=== PATIENT | male | born 1935 | race Caucasian/White ===

== ENCOUNTER 2017-03-25 12:30 | Observation (INO) | payer MEDICARE, BC ==
[2017-03-25] MEDS ORDERED: Ondansetron 4 MG/2 ML SDV IVPUSH ONE (13:00)
--- NOTE | 2017-03-25 13:00 | EDM.PDOC ---
ED HPI GENERAL MEDICAL PROBLEM - General Stated Complaint: SICK TO STOMACH, HEART RATE LOW Time Seen by Provider: 03/25/17 12:30 Source of Information: Reports: Patient, EMS, EMS Notes Reviewed, Family History Limitations: Reports: No Limitations - History of Present Illness INITIAL COMMENTS - FREE TEXT/NARRATIVE: 82 years old w katherin came to the ed after he passed out while eating. As the ambulance arrived, pt was diaphoretic, SBP was in the 80s. pulse 50th. No Cp.Pt was given NS PROFESSIONAL ARCHITECT. As the patient arrived here in the ed, BP wea 115/87 pulse was 49. Pt is on Coreg. No old ecg available. Pt was OX3 and in no discomfort. Onset: Today, Sudden Onset Date: 03/25/17 Onset Time: 12:00 Duration: Minutes: Location: Reports: Generalized Improves with: Reports: None Worsens with: Reports: None - Related Data Allergies Allergy/AdvReac Type Severity Reaction Status Date / Time Penicillins Allergy Anaphylactic Verified 03/25/17 14:53 Shock red dye Allergy Anaphylactic Verified 03/25/17 14:53 Shock Home Meds: Home Meds Aspirin 81 mg PO DAILY 03/25/17 [History] Calcium Carbonate/Vitamin D3 [Caltrate 600 Plus D3 Tablet] 1 tab DAILY 03/25/17 [History] Cholecalciferol (Vitamin D3) [Vitamin D3] 1,000 unit PO 03/25/17 [History] Clopidogrel [Plavix] 75 mg PO DAILY 03/25/17 [History] Cyanocobalamin (Vitamin B-12) [Vitamin B-12] 1,000 mcg PO 03/25/17 [History] Dutasteride [Avodart] 0.5 mg PO DAILY 03/25/17 [History] Fish Oil/[place]-3 Fatty Acids [Fish Oil] 1 each PO TID 03/25/17 [History] Gluc/Derick-Msm#2/C/D3/Shakeel/Born [Dqebumxyiu-Alhoytappvs-MFI] 1 each PO TID [History] Losartan [Cozaar] 25 mg PO DAILY 03/25/17 [History] Multivitamin [One-A-Day Essential] 1 each PO 03/25/17 [History] Ubidecarenone [Coenzyme Q10] 100 mg PO 03/25/17 [History] atorvaSTATin [Lipitor] 20 mg PO BEDTIME 03/25/17 [History] ED ROS GENERAL - Review of Systems Review Of Systems: See Below Constitutional: Reports: No Symptoms HEENT: Reports: No Symptoms Respiratory: Reports: No Symptoms Cardiovascular: Reports: No Symptoms Endocrine: Reports: No Symptoms GI/Abdominal: Reports: No Symptoms : Reports: No Symptoms Musculoskeletal: Reports: No Symptoms Skin: Reports: No Symptoms Neurological: Reports: No Symptoms Psychiatric: Reports: No Symptoms Hematologic/Lymphatic: Reports: No Symptoms Immunologic: Reports: No Symptoms ED EXAM, GI/ABD - Physical Exam Exam: See Below Exam Limited By: No Limitations General Appearance: Alert, WD/WN, No Apparent Distress Eyes: Bilateral: Normal Appearance Ears: Normal External Exam Nose: Normal Inspection, Normal Mucosa Throat/Mouth: Normal Inspection, Normal Lips, Normal Teeth Head: Atraumatic, Normocephalic Neck: Normal Inspection, Supple Respiratory/Chest: No Respiratory Distress, Lungs Clear, Normal Breath Sounds Cardiovascular: Regular Rate, Rhythm, No Edema, No Gallop, No JVD, No Murmur, Bradycardia GI/Abdominal: Normal Bowel Sounds (Male) Exam: Deferred Rectal (Males) Exam: Deferred Back Exam: Normal Inspection, Full Range of Motion Extremities: Normal Inspection, Normal Range of Motion Neurological: Alert, Oriented, CN II-XII Intact, Normal Cognition Psychiatric: Normal Affect, Normal Mood Skin Exam: Warm, Dry, Intact, Normal Color Lymphatic: No Adenopathy EKG INTERPRETATION EKG Date: 03/25/17 Time: 12:35 Rhythm: NSR Rate (beats/min): 49 [place]: normal P-wave: present QRS: normal ST-T: normal QT: normal Comparison: NA - no prior EKG Course - Vital Signs Text/Narrative:: 82 years old w katherin came to the ed after he passed out while eating. As the ambulance arrived, pt was diaphoretic, SBP was in the 80s. pulse 50th. No Cp.Pt was given NS PROFESSIONAL ARCHITECT. As the patient arrived here in the ed, BP wea 115/87 pulse was 49. Pt is on Coreg. No old ecg available. Pt was OX3 and in no discomfort. PE: NL ECG: sinus bradycardia, old ecjg 08/2016 No change Labs: Troponin 0.01 Imaging: CXR NAD Impression: Postprandial syncope, Sinus bradycardia (on Coreg) Tx: NS Consultation: Dr. Leon, Cardiology, [place]: Admit pt for observation, hold off on all BP meds. rexam: Improved Plan: Admit to m/s tele Last Recorded V/S: Last Vital Signs Temp 36.3 C 03/25/17 12:30 Pulse 50 L 03/25/17 12:30 Resp 16 03/25/17 12:30 BP 129/51 L 03/25/17 12:30 Pulse Ox 97 03/25/17 12:30 - Orders/Labs/Meds Orders: Active Orders 24 hr Category Date Time Status Patient Status [ADT] Routine ADT 03/25/17 14:37 Ordered Cardiac Monitoring [RC] CONTINUOUS Care 03/25/17 14:39 Ordered Oxygen Therapy [RC] PRN Care 03/25/17 14:37 Ordered Pulse Oximetry [RC] PRN Care 03/25/17 14:40 Ordered Up With Assistance [RC] ASDIRECTED Care 03/25/17 14:37 Ordered VTE/DVT Education [RC] Per Unit Routine Care 03/25/17 14:37 Ordered Vital Signs [RC] Q4H Care 03/25/17 14:37 Ordered Chest 1V Frontal [CR] Stat Exams 03/25/17 12:56 Taken Ondansetron [Zofran ODT] Med 03/25/17 14:37 Ordered 4 mg PO Q4H PRN Sodium Chloride 0.9% [Normal Saline] 1,000 ml Med 03/25/17 13:00 Active IV ASDIRECTED Resuscitation Status Routine Resus Stat 03/25/17 14:37 Ordered EKG 12 Lead [EK] Routine Ther 03/25/17 12:57 Ordered Medication Orders Sodium Chloride (Normal Saline) 1,000 mls @ 125 mls/hr IV ASDIRECTED L[facility] Last Admin: 03/25/17 14:20 Dose: 125 mls/hr Ondansetron HCl (Zofran Odt) 4 mg PO Q4H PRN PRN Reason: nausea, able to take PO Labs: Laboratory Tests 03/25/17 03/25/17 03/25/17 Range/Units 12:40 12:40 12:40 WBC 7.5 (4.5-12.0) X10-3/uL RBC 4.72 (4.30-5.75) x10(6)uL Hgb 14.5 (11.5-15.5) g/dL Hct 43.2 (30.0-51.3) % MCV 91.6 (80-96) fL MCH 30.8 (27.7-33.6) pg MCHC 33.6 (32.2-35.4) g/dL RDW 13.5 (11.5-15.5) % Plt Count 214 (125-369) X10(3)uL MPV 7.9 (7.4-10.4) fL Neut % (Auto) 72.1 (46-82) % Lymph % (Auto) 15.0 (13-37) % [place] % (Auto) 6.9 (4-12) % Eos % (Auto) 5 (1.0-5.0) % Baso % (Auto) 1 (0-2) % Neut # (Auto) 5.5 (1.6-8.3) # Lymph # (Auto) 1.1 (0.6-5.0) # Campbell # (Auto) 0.5 (0.0-1.3) # Eos # (Auto) 0.4 (0.0-0.8) # Baso # (Auto) 0.0 (0.0-0.2) # PT 11.2 H (8.7-11.1) INR 1.11 (0.89-1.13) Sodium 138 (135-145) mmol/L Potassium 4.6 (3.5-5.3) mmol/L Chloride 108 (100-110) mmol/L Carbon Dioxide 25 (23-29) mmol/L BUN 27 H (8-23) mg/dL Creatinine 1.3 (0.6-1.3) mg/dL Est Cr Clr Drug Dosing TNP Estimated GFR (MDRD) 53 L (>60) BUN/Creatinine Ratio 20.8 H (9-20) Glucose 150 H (80-116) mg/dL Lactic Acid (0.5-2.2) mmol/L Calcium 9.8 (8.6-10.2) mg/dL Troponin I (0.02-0.06) NG/ML B-Natriuretic Peptide (0-100) pg/mL 03/25/17 03/25/17 03/25/17 Range/Units 12:40 12:40 12:40 WBC (4.5-12.0) X10-3/uL RBC (4.30-5.75) x10(6)uL Hgb (11.5-15.5) g/dL Hct (30.0-51.3) % MCV (80-96) fL MCH (27.7-33.6) pg MCHC (32.2-35.4) g/dL RDW (11.5-15.5) % Plt Count (125-369) X10(3)uL MPV (7.4-10.4) fL Neut % (Auto) (46-82) % Lymph % (Auto) (13-37) % Campbell % (Auto) (4-12) % Eos % (Auto) (1.0-5.0) % Baso % (Auto) (0-2) % Neut # (Auto) (1.6-8.3) # Lymph # (Auto) (0.6-5.0) # Campbell # (Auto) (0.0-1.3) # Eos # (Auto) (0.0-0.8) # Baso # (Auto) (0.0-0.2) # PT (8.7-11.1) INR (0.89-1.13) Sodium (135-145) mmol/L Potassium (3.5-5.3) mmol/L Chloride (100-110) mmol/L Carbon Dioxide (23-29) mmol/L BUN (8-23) mg/dL Creatinine (0.6-1.3) mg/dL Est Cr Clr Drug Dosing Estimated GFR (MDRD) (>60) BUN/Creatinine Ratio (9-20) Glucose (80-116) mg/dL Lactic Acid 1.1 (0.5-2.2) mmol/L Calcium (8.6-10.2) mg/dL Troponin I < 0.01 L (0.02-0.06) NG/ML B-Natriuretic Peptide 64 (0-100) pg/mL Meds: Medications Generic Name Dose Route Start Last Admin Trade Name Freq PRN Reason Stop Dose Admin Sodium Chloride 1,000 mls @ 125 mls/hr 03/25/17 13:00 03/25/17 14:20 Normal Saline IV 125 mls/hr ASDIRECTED LISA Administration Ondansetron HCl 4 mg 03/25/17 14:37 Zofran Odt PO Q4H PRN nausea, able to take PO Discontinued Medications Generic Name Dose Route Start Last Admin Trade Name Linda PRN Reason Stop Dose Admin Ondansetron HCl 4 mg 03/25/17 13:00 03/25/17 14:21 Zofran IVPUSH 03/25/17 13:01 Not Given ONETIME ONE Departure - Departure Time of Disposition: 14:36 Disposition: Refer to Observation Condition: fair Clinical Impression: Episode of syncope Qualifiers: Encounter type: initial encounter - Discharge Information Referrals: PCP,None [Primary Care Provider] - - My Orders Last 24 Hours: My Active Orders 03/25/17 12:56 Chest 1V Frontal [CR] Stat 03/25/17 12:57 EKG 12 Lead [EK] Routine 03/25/17 13:00 Sodium Chloride 0.9% [Normal Saline] 1,000 ml IV ASDIRECTED 03/25/17 14:37 Patient Status [ADT] Routine Oxygen Therapy [RC] PRN Up With Assistance [RC] ASDIRECTED VTE/DVT Education [RC] Per Unit Routine Vital Signs [RC] Q4H Ondansetron [Zofran ODT] 4 mg PO Q4H PRN Resuscitation Status Routine 03/25/17 14:39 Cardiac Monitoring [RC] CONTINUOUS 03/25/17 14:40 Pulse Oximetry [RC] PRN - Assessment/Plan Last 24 Hours: My Active Orders 03/25/17 12:56 Chest 1V Frontal [CR] Stat 03/25/17 12:57 EKG 12 Lead [EK] Routine 03/25/17 13:00 Sodium Chloride 0.9% [Normal Saline] 1,000 ml IV ASDIRECTED 03/25/17 14:37 Patient Status [ADT] Routine Oxygen Therapy [RC] PRN Up With Assistance [RC] ASDIRECTED VTE/DVT Education [RC] Per Unit Routine Vital Signs [RC] Q4H Ondansetron [Zofran ODT] 4 mg PO Q4H PRN Resuscitation Status Routine 03/25/17 14:39 Cardiac Monitoring [RC] CONTINUOUS 03/25/17 14:40 Pulse Oximetry [RC] PRN
[2017-03-25] MEDS: Sodium Chloride 0.9% 1,000 ML IV SCH ×2 (14:20→22:27)
[2017-03-25] MEDS ORDERED: Ondansetron 4 MG Tab.DIS PO PRN (14:37)
--- NOTE | 2017-03-25 17:26 | PCM.HP ---
H&P History of Present Illness - General Date of Service: 03/25/17 Admit Problem/Dx: Admission Diagnosis/Problem Admission Diagnosis/Problem Syncope Source of Information: Patient History Limitations: Reports: No Limitations - History of Present Illness Initial Comments - Free Text/Narative: This is an 82-year-old male patient that lives out at [facility]. He was here because his [id number] last night. He states he was at the parking lot at [facility] sitting in his pickup. He felt very nauseated and was diaphoretic. He stood outside his car and felt a little lightheaded and then was placed back in his car. Ambulance was called. There is a gentleman that helped him from [facility] and he did not remember this person. Ambulance evaluated him and his pulse was very low and his blood pressure was low. He was brought into the emergency room. He states his goals for soaked. 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 He denies chest pain, shortness of breath, jaw pain, arm pain. He states he's had pancreatitis in the past that gave similar symptoms. Right now he is asymptomatic as I speak to him. The ER doctor called his microphone boom operator and they recommended holding the carvedilol and observing him overnight. - Related Data Allergies/Adverse Reactions: Allergies Allergy/AdvReac Type Severity Reaction Status Date / Time Penicillins Allergy Anaphylactic Verified 03/25/17 14:53 Shock red dye Allergy Anaphylactic Verified 03/25/17 14:53 Shock Home Medications: Home Meds Aspirin 81 mg PO DAILY 03/25/17 [History] Calcium Carbonate/Vitamin D3 [Caltrate 600 Plus D3 Tablet] 1 tab PO DAILY [History] Cephalexin [Take Home: Cephalexin 500 MG, 4 Cap Pack] 500 mg PO BID 03/25/17 [ History] Cholecalciferol (Vitamin D3) [Vitamin D3] 1,000 unit PO DAILY 03/25/17 [History] Clopidogrel Bisulfate [Plavix] 75 mg PO DAILY 03/25/17 [History] Clopidogrel [Plavix] 75 mg PO DAILY 03/25/17 [History] Cyanocobalamin (Vitamin B-12) [Vitamin B-12] 2,000 mcg PO DAILY 03/25/17 [ History] Dutasteride [Avodart] 0.5 mg PO DAILY 03/25/17 [History] Fish Oil/[place]-3 Fatty Acids [Fish Oil] 1 each PO TID 03/25/17 [History] Gluc/Derick-Msm#2/C/D3/Shakeel/Born [Xmedvyxdjd-Hvdzfahirfc-KQA] 1 each PO TID [History] Losartan [Cozaar] 25 mg PO DAILY 03/25/17 [History] Multivitamin [One-A-Day Essential] 1 each PO DAILY 03/25/17 [History] Ranitidine [Zantac] 150 mg PO BID 03/25/17 [History] Ubidecarenone [Coenzyme Q10] 100 mg PO DAILY 03/25/17 [History] atorvaSTATin [Lipitor] 20 mg PO BEDTIME 03/25/17 [History] Past Medical History Cardiovascular History: Reports: CAD, [place] Gastrointestinal History: Reports: GERD, Pancreatitis, Other (See Below) Other Gastrointestinal History: "pancreas issues" Dermatologic History: Reports: Other (See Below) Other Dermatologic History: very reactive to bug bites. currently has a swollen left eye from a bug bite - Past Surgical History Cardiovascular Surgical History: Reports: Carotid Stents Other Cardiovascular Surgeries/Procedures: Coronary stent Social & Family History - Tobacco Use Smoking Status *Q: Never Smoker Second Hand Smoke Exposure: No - Caffeine Use Caffeine Use: Reports: Soda - Recreational Drug Use Recreational Drug Use: No H&P Review of Systems - Review of Systems: Review Of Systems: See Below General: Reports: Diaphoresis HEENT: Reports: No Symptoms Pulmonary: Reports: No Symptoms Cardiovascular: Reports: No Symptoms Gastrointestinal: Reports: Nausea. Denies: Abdominal Pain, Black Stool, Bloody Stool, Constipation, Diarrhea, Difficulty Swallowing, Hematemesis, Hematochezia , Melena, Vomiting Genitourinary: Reports: No Symptoms Musculoskeletal: Reports: No Symptoms Skin: Reports: No Symptoms Psychiatric: Reports: No Symptoms Neurological: Reports: No Symptoms Hematologic/Lymphatic: Reports: No Symptoms Immunologic: Reports: No Symptoms Exam - Exam Exam: See Below - Vital Signs Vital Signs: Last Vital Signs Temp 98 F 03/25/17 16:15 Pulse 87 03/25/17 16:15 Resp 16 03/25/17 16:15 BP 146/71 H 03/25/17 16:15 Pulse Ox 98 03/25/17 16:15 Weight: 159 lb 6.4 oz - Exam General: Alert, Oriented, Cooperative HEENT: Hearing Intact, Mucosa Moist & [place], Posterior Pharynx Clear, Pupils Equal, Pupils Reactive, TMs Clear, Other (Left eye is swollen. He was diagnosed with cellulitis of the eye earlier today and placed on cephalexin.). No: Rhinitis Neck: Supple, Trachea Midline. No: Carotid Bruit, JVD Lungs: Clear to Auscultation, Normal Respiratory Effort. No: Decreased Breath Sounds, Crackles, Rales, Rhonchi, Rub Cardiovascular: Regular Rate, Regular Rhythm, Normal S1, Normal S2. No: Bradycardia, Tachycardia, Systolic Murmur, Diastolic Murmur Abdomen: Normal Bowel Sounds, Soft. No: Organomegaly, Peritoneal Signs, Distention, Guarding, Rigidity Back Exam: Normal Inspection, Full Range of Motion, NT Extremities: Normal Inspection. No: Edema Skin: Warm, Dry, Intact Neurological: Normal Speech, Normal Tone Neuro Extensive - Mental Status: Alert, Oriented x3, Normal Mood/Affect, Normal Cognition Psychiatric: Alert, Normal Affect, Normal Mood - Patient Data Lab Results last 24 hrs: Laboratory Results - last 24 hr 03/25/17 Range/Units 15:45 Urine Color Yellow (YELLOW) Urine Appearance Clear (CLEAR) Urine pH 6.0 (5.0-6.5) Ur Specific [place] 1.015 (1.010-1.025) Urine Protein Negative (NEGATIVE) mg/dL Urine Glucose (UA) 250 H (NEGATIVE) mg/dL Urine Ketones Negative (NEGATIVE) mg/dL Urine Occult Blood Negative (NEGATIVE) Urine Nitrite Negative (NEGATIVE) Urine Bilirubin Negative (NEGATIVE) Urine Urobilinogen Normal (NEGATIVE) mg/dL Ur Leukocyte Esterase Negative (NEGATIVE) Result Diagrams: 03/25/17 12:40 03/25/17 12:40 Imaging Impressions last 24 hrs: 1 view the chest shows no acute changes. EKG INTERPRETATION EKG Interpretation Comments: Sinus bradycardia with a rate of 49. Right bundle branch block. Old inferior and anterior lateral [place] *Q Meaningful Use (ADM) - VTE *Q VTE Criteria *Q: - Stroke *Q Stroke Criteria *Q: - AMI *Q AMI Criteria *Q: - Problem List (1) Bradycardia SNOMED Code(s): 51092734 ICD Code: R00.1 - BRADYCARDIA, UNSPECIFIED Status: Acute Current Visit: Yes (2) Episode of syncope SNOMED Code(s): 114136388 ICD Code: R55 - SYNCOPE AND COLLAPSE Status: Acute Current Visit: Yes Qualifiers: Encounter type: initial encounter Problem List Initiated/Reviewed/Updated: Yes Orders Last 24hrs: Medication Orders Sodium Chloride (Normal Saline) 1,000 mls @ 125 mls/hr IV ASDIRECTED [facility] Last Admin: 03/25/17 14:20 Dose: 125 mls/hr Ondansetron HCl (Zofran Odt) 4 mg PO Q4H PRN PRN Reason: nausea, able to take PO Assessment/Plan Comment:: 1. Admit for observation with telemetry and some IV fluids. 2.. Continue all his home medicines except carvedilol. Continue Keflex 500 mg 3 times a day. 3. Hold carvedilol tonight. 4. Check amylase 5. Do EKG and troponin in a.m. 6. Cardiac diet. 7. Upper with assist.
[2017-03-25] MEDS ORDERED: FATTY ACIDS PO SCH (21:00)
[2017-03-25] MEDS ORDERED: Non-Formulary Medication 1 Each (Gluc/Chon-Msm#2/C/D3/Mang/Born [Glucosamin-Chondroitin-Ms PO SCH (21:00)
[2017-03-25] MEDS ORDERED: [UNRECOGNIZED DRUG - OTHER] PO SCH (21:00)
[2017-03-25] MEDS ORDERED: [UNRECOGNIZED DRUG - OTHER] PO SCH (21:00)
[2017-03-25] MEDS ORDERED: Non-Formulary Medication 1 Each (Atorvastatin [Lipitor] 20 MG) PO SCH (21:00)
[2017-03-25] MEDS ORDERED: FISH OIL PO SCH (21:00)
[2017-03-25] MEDS ORDERED: CEPHALEXIN PO SCH (21:00)
[2017-03-25] MEDS ORDERED: OMEGA PO SCH (21:00)
[2017-03-25] MEDS ORDERED: Non-Formulary Medication 1 Each (Ranitidine [Zantac] 150 MG) PO SCH (21:00)
[2017-03-26] MEDS: Sodium Chloride 0.9% 1,000 ML IV SCH (06:39)
--- NOTE | 2017-03-26 08:05 | PCM.PN ---
- General Info Date of Service: 03/26/17 Admission Dx/Problem (Free Text): Patient without complaints. He denies chest pain, palpitations, shortness of breath, abdominal pain, nausea, vomiting, diarrhea or constipation. - Patient Data Vitals - most recent: Last Vital Signs Temp 97.7 F 03/26/17 04:00 Pulse 62 03/26/17 04:00 Resp 16 03/26/17 04:00 BP 138/68 03/26/17 04:00 Pulse Ox 96 03/26/17 04:00 Weight - most recent: 159 lb 6.4 oz I&O - last 24 hours: Intake & Output 03/25/17 03/26/17 03/26/17 22:59 06:59 14:59 Intake Total 766 909 300 Balance 766 909 300 Lab Results last 24 hrs: Laboratory Results - last 24 hr 03/25/17 03/26/17 Range/Units 15:45 06:30 Troponin I 0.02 (0.02-0.06) NG/ML Urine Color Yellow (YELLOW) Urine Appearance Clear (CLEAR) Urine pH 6.0 (5.0-6.5) Ur Specific [place] 1.015 (1.010-1.025) Urine Protein Negative (NEGATIVE) mg/dL Urine Glucose (UA) 250 H (NEGATIVE) mg/dL Urine Ketones Negative (NEGATIVE) mg/dL Urine Occult Blood Negative (NEGATIVE) Urine Nitrite Negative (NEGATIVE) Urine Bilirubin Negative (NEGATIVE) Urine Urobilinogen Normal (NEGATIVE) mg/dL Ur Leukocyte Esterase Negative (NEGATIVE) Med Orders - Current: Current Medications Sodium Chloride (Normal Saline) 1,000 mls @ 125 mls/hr IV ASDIRECTED [facility] Last Admin: 03/26/17 06:39 Dose: 125 mls/hr Non-Formulary Medication (Aspirin [Aspirin]) 81 mg PO DAILY [facility] Non-Formulary Medication (Calcium Carbonate/Vitamin D3 [Caltrate 600 Plus D3 Tablet]) 1 tab PO DAILY [facility] Non-Formulary Medication (Cephalexin [Take Home: Cephalexin 500 Mg, 4 Cap Pack] ) 500 mg PO BID [facility] Non-Formulary Medication (Cholecalciferol (Vitamin D3) [Vitamin D3]) 1,000 unit PO DAILY [facility] Non-Formulary Medication (Clopidogrel [Plavix]) 75 mg PO DAILY [facility] Non-Formulary Medication (Cyanocobalamin (Vitamin B-12) [Vitamin B-12]) 2,000 mcg PO DAILY [facility] Non-Formulary Medication (Fish Oil/[place]-3 Fatty Acids [Fish Oil 1,000 Mg]) 1 each PO TID [facility] Non-Formulary Medication (Gluc/Derick-Msm#2/C/D3/Shakeel/Born [Glucosamin-Chondroitin -Msm]) 1 each PO TID [facility] Non-Formulary Medication (Losartan [Cozaar]) 25 mg PO DAILY [facility] Non-Formulary Medication (Multivitamin [One-A-Day Essential]) 1 each PO DAILY [facility] Non-Formulary Medication (Ranitidine [Zantac]) 150 mg PO BID [facility] Non-Formulary Medication (Ubidecarenone [Coenzyme Q10]) 100 mg PO DAILY [facility] Non-Formulary Medication (Atorvastatin [Lipitor]) 20 mg PO BEDTIME [facility] Ondansetron HCl (Zofran Odt) 4 mg PO Q4H PRN PRN Reason: nausea, able to take PO Discontinued Medications Ondansetron HCl (Zofran) 4 mg IVPUSH ONETIME ONE Stop: 03/25/17 13:01 Last Admin: 03/25/17 14:21 Dose: Not Given - Exam General: alert, oriented, cooperative Neck: supple Lungs: Clear to auscultation, Normal respiratory effort Cardiovascular: Regular Rate, Regular Rhythm. No: No Murmurs Abdomen: bowel sounds present, soft, no tenderness, no distension Extremities: no edema - Problem List & Annotations (1) Bradycardia SNOMED Code(s): 96571754 Code(s): R00.1 - BRADYCARDIA, UNSPECIFIED Status: Acute Current Visit: Yes (2) Episode of syncope SNOMED Code(s): 578548884 Code(s): R55 - SYNCOPE AND COLLAPSE Status: Acute Current Visit: Yes Qualifiers: Encounter type: initial encounter - Problem List Review Problem List Initiated/Reviewed/Updated: Yes - My Orders Last 24 Hours: My Active Orders 03/25/17 21:00 Cephalexin [Take Home: Cephalexin 500 MG, 4 Cap Pack] 500 mg PO BID Fish Oil/[place]-3 Fatty Acids [Fish Oil 1,000 MG] 1 each PO TID Gluc/Derick-Msm#2/C/D3/Shakeel/Born [Aevxckdtdc-Hnrjaknodrx-NWU] 1 each PO TID Ranitidine [Zantac] 150 mg PO BID atorvaSTATin [Lipitor] 20 mg PO BEDTIME 03/26/17 06:00 EKG 12 Lead [EK] Routine 03/26/17 09:00 Aspirin [Aspirin] 81 mg PO DAILY Calcium Carbonate/Vitamin D3 [Caltrate 600 Plus D3 Tablet] 1 tab PO DAILY Cholecalciferol (Vitamin D3) [Vitamin D3] 1,000 unit PO DAILY Clopidogrel [Plavix] 75 mg PO DAILY Cyanocobalamin (Vitamin B-12) [Vitamin B-12] 2,000 mcg PO DAILY Losartan [Cozaar] 25 mg PO DAILY Multivitamin [One-A-Day Essential] 1 each PO DAILY Ubidecarenone [Coenzyme Q10] 100 mg PO DAILY - Plan Plan:: 1. discharge the patient home. 2. Hold carvedilol until he sees his primary physician Dr. Cagle.
[2017-03-26 08:07] VITALS: BP 138/70
--- NOTE | 2017-03-26 08:12 | PCM.DCSUM1 ---
Discharge Summary - Hospital Course Free Text/Narrative:: Hospital course-cardiology recommended stopping his carvedilol and observing overnight. Patient's blood pressure is in the 120s-130s systolic. Pulse remained in the 50s-60s. He was asymptomatic with no dizziness, abdominal pain , chest palpitations, chest pressure shortness of breath. We'll discharge him home on all his medicines and hold his carvedilol until he sees Dr. Cagle hopefully this week. Brief History: This is an 82-year-old male patient that lives out at [facility]. He was here because his [id number] last night. He states he was at the parking lot at [facility] sitting in his pickup. He felt very nauseated and was diaphoretic. He stood outside his car and felt a little lightheaded and then was placed back in his car. Ambulance was called. There is a gentleman that helped him from [facility] and he did not remember this person. Ambulance evaluated him and his pulse was very low and his blood pressure was low. He was brought into the emergency room. He states his goals for soaked. 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 He denies chest pain, shortness of breath, jaw pain, arm pain. He states he's had pancreatitis in the past that gave similar symptoms. Right now he is asymptomatic as I speak to him. The ER doctor called his medical cash poster and they recommended holding the carvedilol and observing him overnight. - Discharge Data Discharge Date: 03/26/17 Discharge Disposition: Home, Self-Care 01 Condition: Good - Discharge Diagnosis/Problem(s) (1) Bradycardia SNOMED Code(s): 89933678 ICD Code: R00.1 - BRADYCARDIA, UNSPECIFIED Status: Acute Current Visit: Yes (2) Episode of syncope SNOMED Code(s): 141047121 ICD Code: R55 - SYNCOPE AND COLLAPSE Status: Acute Current Visit: Yes Qualifiers: Encounter type: initial encounter - Patient Instructions Diet: Heart Healthy Diet Activity: As Tolerated Driving: May Drive Today Showering/Bathing: May Shower Notify Provider of: Increased Pain, Nausea and/or Vomiting Other/Special Instructions: 1. Recheck with Dr Cagle in [place] within the week. - Discharge Plan Home Medications: Home Meds Aspirin 81 mg PO DAILY 03/25/17 [History] Calcium Carbonate/Vitamin D3 [Caltrate 600 Plus D3 Tablet] 1 tab PO DAILY [History] Cephalexin [Take Home: Cephalexin 500 MG, 4 Cap Pack] 500 mg PO BID 03/25/17 [ History] Cholecalciferol (Vitamin D3) [Vitamin D3] 1,000 unit PO DAILY 03/25/17 [History] Clopidogrel Bisulfate [Plavix] 75 mg PO DAILY 03/25/17 [History] Clopidogrel [Plavix] 75 mg PO DAILY 03/25/17 [History] Cyanocobalamin (Vitamin B-12) [Vitamin B-12] 2,000 mcg PO DAILY 03/25/17 [ History] Finasteride 5 mg PO BEDTIME 03/25/17 [History] Fish Oil/Drexel-3 Fatty Acids [Fish Oil 1,000 MG] 1 each PO TID 03/25/17 [History ] Gluc/Derick-Msm#2/C/D3/Shakeel/Born [Sguidqdkim-Qdgbkqhkptf-QZS] 1 each PO TID [History] Losartan [Cozaar] 50 mg PO DAILY 03/25/17 [History] Multivitamin [One-A-Day Essential] 1 each PO DAILY 03/25/17 [History] Ranitidine [Zantac] 150 mg PO BID 03/25/17 [History] Ubidecarenone [Coenzyme Q10] 100 mg PO DAILY 03/25/17 [History] atorvaSTATin [Lipitor] 80 mg PO BEDTIME 03/25/17 [History] Forms: ED Department Discharge Referrals: PCP,None [Ordering Only Provider] - - Discharge Summary/Plan Comment DC Time >30 min.: Yes - Patient Data Vitals - Most Recent: Last Vital Signs Temp 97.9 F 03/26/17 07:50 Pulse 62 03/26/17 07:50 Resp 22 H 03/26/17 07:50 BP 138/70 03/26/17 07:50 Pulse Ox 97 03/26/17 07:50 Weight - Most Recent: 159 lb 6.4 oz I&O - Last 24 hours: Intake & Output 03/25/17 03/26/17 03/26/17 22:59 06:59 14:59 Intake Total 766 909 300 Balance 766 909 300 Lab Results - Last 24 hrs: Laboratory Results - last 24 hr 03/25/17 03/26/17 Range/Units 15:45 06:30 Troponin I 0.02 (0.02-0.06) NG/ML Urine Color Yellow (YELLOW) Urine Appearance Clear (CLEAR) Urine pH 6.0 (5.0-6.5) Ur Specific [place] 1.015 (1.010-1.025) Urine Protein Negative (NEGATIVE) mg/dL Urine Glucose (UA) 250 H (NEGATIVE) mg/dL Urine Ketones Negative (NEGATIVE) mg/dL Urine Occult Blood Negative (NEGATIVE) Urine Nitrite Negative (NEGATIVE) Urine Bilirubin Negative (NEGATIVE) Urine Urobilinogen Normal (NEGATIVE) mg/dL Ur Leukocyte Esterase Negative (NEGATIVE) Med Orders - Current: Current Medications Sodium Chloride (Normal Saline) 1,000 mls @ 125 mls/hr IV ASDIRECTED [facility] Last Admin: 03/26/17 06:39 Dose: 125 mls/hr Non-Formulary Medication (Aspirin [Aspirin]) 81 mg PO DAILY [facility] Non-Formulary Medication (Calcium Carbonate/Vitamin D3 [Caltrate 600 Plus D3 Tablet]) 1 tab PO DAILY [facility] Non-Formulary Medication (Cephalexin [Take Home: Cephalexin 500 Mg, 4 Cap Pack] ) 500 mg PO BID [facility] Non-Formulary Medication (Cholecalciferol (Vitamin D3) [Vitamin D3]) 1,000 unit PO DAILY [facility] Non-Formulary Medication (Clopidogrel [Plavix]) 75 mg PO DAILY [facility] Non-Formulary Medication (Cyanocobalamin (Vitamin B-12) [Vitamin B-12]) 2,000 mcg PO DAILY [facility] Non-Formulary Medication (Fish Oil/Drexel-3 Fatty Acids [Fish Oil 1,000 Mg]) 1 each PO TID [facility] Non-Formulary Medication (Gluc/Derick-Msm#2/C/D3/Shakeel/Born [Glucosamin-Chondroitin -Msm]) 1 each PO TID [facility] Non-Formulary Medication (Losartan [Cozaar]) 25 mg PO DAILY [facility] Non-Formulary Medication (Multivitamin [One-A-Day Essential]) 1 each PO DAILY [facility] Non-Formulary Medication (Ranitidine [Zantac]) 150 mg PO BID [facility] Non-Formulary Medication (Ubidecarenone [Coenzyme Q10]) 100 mg PO DAILY [facility] Non-Formulary Medication (Atorvastatin [Lipitor]) 20 mg PO BEDTIME [facility] Ondansetron HCl (Zofran Odt) 4 mg PO Q4H PRN PRN Reason: nausea, able to take PO Discontinued Medications Ondansetron HCl (Zofran) 4 mg IVPUSH ONETIME ONE Stop: 03/25/17 13:01 Last Admin: 03/25/17 14:21 Dose: Not Given *Q Meaningful Use (DIS) - VTE *Q VTE Criteria *Q: - Stroke *Q Stroke Criteria *Q: - AMI *Q AMI Criteria *Q:
[2017-03-26] MEDS ORDERED: Non-Formulary Medication 1 Each (Cyanocobalamin (Vitamin B-12) [Vitamin B-12] 2,000 MCG) PO SCH (09:00)
[2017-03-26] MEDS ORDERED: MULTIVITAMIN PO SCH (09:00)
[2017-03-26] MEDS ORDERED: Non-Formulary Medication 1 Each (Ubidecarenone [Coenzyme Q10] 100 MG) PO SCH (09:00)
[2017-03-26] MEDS ORDERED: Non-Formulary Medication 1 Each (Cholecalciferol (Vitamin D3) [Vitamin D3] 1,000 UNIT) PO SCH (09:00)
[2017-03-26] MEDS ORDERED: Non-Formulary Medication 1 Each (Aspirin [Aspirin] 81 MG) PO SCH (09:00)
[2017-03-26] MEDS ORDERED: Non-Formulary Medication 1 Each (Calcium Carbonate/Vitamin D3 [Caltrate 600 Plus D3 Tablet PO SCH (09:00)
[2017-03-26] MEDS ORDERED: Non-Formulary Medication 1 Each (Losartan [Cozaar] 25 MG) PO SCH (09:00)
[2017-03-26] MEDS ORDERED: Non-Formulary Medication 1 Each (Clopidogrel [Plavix] 75 MG) PO SCH (09:00)
--- NOTE | 2017-03-26 13:20 | CR ---
INDICATION: Low blood pressure. CHEST: Portable AP upright view of the chest 03/25/2017 was obtained. The heart appears somewhat enlarged. The aorta is tortuous with calcification in the arch. Overlying EKG leads are noted. Lungs appear to be somewhat hyperaerated. Slightly flattened left diaphragm leaf and interdigitated right hemidiaphragm leaf raise question of COPD additionally. A definite active infiltrate or effusion was not identified. No evidence of CHF is seen. IMPRESSION: No acute process. Findings as noted above. MTDD
== END 2017-03-26 10:00 | disposition home or self-care (01) ==
LOC: FB.ED 12:30 → UNDOADMOB 14:37 → FB.MS 14:37
PROVIDERS: ADMIT Family Medicine; ATTEND Family Medicine
DX: I45.10 Unspecified right bundle-branch block (principal); R00.1 Bradycardia, unspecified; I25.2 Old myocardial infarction; I25.10 Atherosclerotic heart disease of native coronary artery without angina pectoris; R55 Syncope and collapse; K21.9 Gastro-esophageal reflux disease without esophagitis; Z79.82 Long term (current) use of aspirin; Z79.899 Other long term (current) drug therapy; Z79.02 Long term (current) use of antithrombotics/antiplatelets; Z91.041 Radiographic dye allergy status; Z88.0 Allergy status to penicillin; Z95.5 Presence of coronary angioplasty implant and graft
CPT/HCPCS: 36415; 71010; 80048; 81003; 82150; 83036; 83605; 83880; 84484; 85025; 85610; 93005; 96360; 96361; 99285; G0378; J7040; 99217; 99219